=== PATIENT | female | born 1970 | race Caucasian/White ===

== ENCOUNTER 2017-06-12 09:37 | Emergency (ER) | payer OTHER ==
[2017-06-12] MEDS ORDERED: Sodium Chloride 0.9% 1000 ML 1,000 ML IV STA (10:08)
[2017-06-12] MEDS ORDERED: Zofran 4 MG/2 ML VIAL IV ONE (10:08)
[2017-06-12] MEDS ORDERED: VALIUM 10 MG/2 ML SYRINGE IV ONE (10:08)
--- NOTE | 2017-06-12 10:13 | ERPHSYRPT ---
- History of Present Illness Time Seen by Provider: 06/12/17 10:00 Source: patient Patient Subjective Stated Complaint: woke up this am at 0430 with dizziness, h/a , and nausea. states had similair episode several years ago after working a long stretch. Triage Nursing Assessment: to room per w/c, skin w/d, color normal, resp easy. assisted to cot due to dizziness. kerr without difficulty. eliseo. no vomiting at present time. Physician History: CC: dizziness Hx: 46 y/o patient has profound vertiginous dizziness today. Worse with movement of her head. Nausea and some dry heaves. Feels thirsty. Mild "sinus headache." No ear ringing or buzzing. No hearing loss. LMP 3 weeks ago. No chest or abd pain. No fever or chills. No injury. No chiropractic manipulation. Timing/Duration: today Severity: severe Allergies/Adverse Reactions: morphine Allergy (Severe, Verified 06/12/17 09:54) Sulfa (Sulfonamide Antibiotics) [Sulfa(Sulfonamide Antibiotics)] Allergy (Mild, Verified 06/12/17 09:54) Home Medications: Prozac 20 MG 20 mg PO DAILY 04/11/12 [History] Cetirizine HCl [Zyrtec] 10 mg PO DAILY 06/12/17 [History] Hx Tetanus, Diphtheria Vaccination/Date Given: Yes Hx Influenza Vaccination/Date Given: Yes (2011) Hx Pneumococcal Vaccination/Date Given: No - Review of Systems Constitutional: No Fever, No Chills Eyes: No Symptoms, No Vision Changes Ears, Nose, & Throat: No Hearing Changes, No Tinnitus Respiratory: No Cough, No Dyspnea Cardiac: No Chest Pain, No Palpitations, No Syncope Abdominal/Gastrointestinal: Nausea, No Abdominal Pain, No Vomiting, No Diarrhea Skin: No Rash Neurological: Dizziness, Headache (mild), No Focal Weakness, No Parasthesia All Other Systems: Reviewed and Negative - Past Medical History Pertinent Past Medical History: Yes Neurological History: No Pertinent History ENT History: No Pertinent History Cardiac History: No Pertinent History Respiratory History: No Pertinent History Endocrine Medical History: No Pertinent History Musculoskeletal History: No Pertinent History GI Medical History: No Pertinent History History: No Pertinent History Psycho-Social History: Depression Female Reproductive Disorders: No Pertinent History - Past Surgical History Past Surgical History: Yes Gastrointestinal: Cholecystectomy Female Surgical History: Section, Tubal Ligation - Social History Smoking Status: Never smoker Exposure to second hand smoke: No Drug Use: none Patient Lives Alone: No - Female History Hx Last Menstrual Period: 05/19/17 Hx Now: No (tubal) - Nursing Vital Signs Nursing Vital Signs: Initial Vital Signs Temperature 97.9 F 06/12/17 09:48 Pulse Rate 74 06/12/17 09:48 Respiratory Rate 16 06/12/17 09:48 Blood Pressure 115/65 06/12/17 09:48 O2 Sat by Pulse Oximetry 96 06/12/17 09:48 Pain Scale Pain Intensity 1 - [place] Coma Scale Best Eye Response (Olena): (4) open spontaneously Best Verbal Response (Olena): (5) oriented Best Motor Response (Olena): (6) obeys commands [place] Total: 15 - Physical Exam General Appearance: alert Eye Exam: bilateral eye: PERRL, EOMI Ears, Nose, Throat Exam: normal ENT inspection, moist mucous membranes Neck Exam: normal inspection, non-tender, supple, other (prefers to hold still due to dizziness) Respiratory: normal breath sounds Cardiovascular: regular rate/rhythm, No murmur Gastrointestinal: soft, No tenderness, No distention Extremity Exam: normal inspection, normal range of motion Mental Status: alert, oriented x 3, cooperative certified registered nurse practitioner Exam: normal hearing, normal speech, PERRL Coordination/Gait: normal finger to nose, normal cerebellar function (normal Heel to [place]) Motor/Sensory: no motor deficit, no sensory deficit, no pronator drift Skin Exam: normal color, warm, dry, No rash SpO2 Interpretation: normal SpO2: 96 Oxygen Delivery: Room Air - Course Nursing assessment & vital signs reviewed: Yes - CT Exams head CT Interpretation: Negative, Tele-radiologist Report Ordered Tests: Active Orders 24 hr Category Date Time Status IV Insertion STAT Care 06/12/17 10:08 Active HEAD WITHOUT CONTRAST [CT] Stat Exams 06/12/17 11:33 Ordered CBC W DIFF Stat Lab 06/12/17 10:08 Completed CMP Stat Lab 06/12/17 10:08 Completed HCG QUALITATIVE,SERUM Stat Lab 06/12/17 10:08 Completed Medication Summary Discontinued Medications Generic Name Dose Route Start Last Admin Trade Name Freq PRN Reason Stop Dose Admin Diazepam 5 mg 06/12/17 10:08 06/12/17 10:25 Valium 10 Mg/2 Ml Syringe IV 06/12/17 10:09 5 mg STAT ONE Administration Diazepam Confirm 06/12/17 10:21 Valium 10 Mg/2 Ml Syringe Administered 06/12/17 10:22 Dose 10 mg .ROUTE .STK-MED ONE Sodium Chloride 1,000 mls @ 999 mls/hr 06/12/17 10:08 06/12/17 10:25 Sodium Chloride 0.9% 1000 Ml IV 06/12/17 11:08 999 mls/hr .Q1H1M STA Administration Sodium Chloride Confirm 06/12/17 10:22 Sodium Chloride 0.9% 1000 Ml Administered 06/12/17 10:23 Dose 1,000 mls @ ud .ROUTE .STK-MED ONE Lactated Ringer's 1,000 mls @ 999 mls/hr 06/12/17 11:13 06/12/17 11:18 Lactated Ringers IV 06/12/17 12:13 999 mls/hr .Q1H1M ONE Administration Lactated Ringer's Confirm 06/12/17 11:14 Lactated Ringers Administered 06/12/17 11:15 Dose 1,000 mls @ ud IV .STK-MED ONE Meclizine HCl 25 mg 06/12/17 12:45 06/12/17 12:59 Antivert 25 Mg PO 06/12/17 12:46 25 mg STAT ONE Administration Meclizine HCl Confirm 06/12/17 12:54 Antivert 25 Mg Administered 06/12/17 12:55 Dose 25 mg .ROUTE .STK-MED ONE Ondansetron HCl 4 mg 06/12/17 10:08 06/12/17 10:25 Zofran 4 Mg/2 Ml Vial IV 06/12/17 10:09 4 mg STAT ONE Administration Ondansetron HCl Confirm 06/12/17 10:21 Zofran 4 Mg/2 Ml Vial Administered 06/12/17 10:22 Dose 4 mg .ROUTE .STK-MED ONE Lab/Rad Data: Laboratory Result Diagrams 06/12/17 10:08 06/12/17 10:08 Laboratory Results 06/12/17 06/12/17 06/12/17 Range/Units 10:08 10:08 10:08 WBC 7.7 (4.0-10.5) K/mm3 RBC 4.02 L (4.1-5.4) M/mm3 Hgb 11.7 L (12.0-16.0) gm/dl Hct 34.7 L (35-47) % MCV 86.3 (78-100) fl MCH 29.1 (26-32) pg MCHC 33.7 (32-36) g/dl RDW 13.7 (11.5-14.0) % Plt Count 233 (150-450) K/mm3 MPV 10.0 H (6-9.5) fl Gran % 67.7 H (36.0-66.0) % Lymphocytes % 23.6 L (24.0-44.0) % Monocytes % 6.8 (0.0-12.0) % Eosinophils % 1.6 (0.00-5.0) % Basophils % 0.3 (0.0-0.4) % Basophils # 0.02 (0-0.4) Sodium 137 (136-145) mEq/L Potassium 3.9 (3.5-5.1) mEq/L Chloride 104 (98-107) mEq/L Carbon Dioxide 24.2 (21-32) mEq/L Anion Gap 13.0 (5-15) MEQ/L BUN 12 (9-20) mg/dL Creatinine 0.65 (0.55-1.30) mg/dl Estimated GFR > 60 ML/MIN Glucose 101 (70-110) MG/DL Calcium 8.8 (8.5-10.1) mg/dL Total Bilirubin 0.30 (0.2-1.0) mg/dL AST 33 (15-37) U/L ALT 45 (12-78) U/L Alkaline Phosphatase 64 (46-116) U/L Serum Total Protein 6.9 (6.4-8.2) gm/dL Albumin 3.4 (3.4-5.0) g/dL Serum , Qual NEGATIVE (Negative) - Progress Progress Note: 06/12/17 11:36 Pt had some improvement in vertigo until she got up to the commode. She has return of profound dizziness. Will get CT. IVF given as BP was borderline. 06/12/17 12:44 Mookie Hallpike positive mildly on right side down. Christian maneuver performed once. No vertigo. Will rest and attempt ambulation. 06/12/17 13:17 Pt ambulated in hallway. No vertigo. Still feels some woozy. BP ok. She is drinking sprite. She was able to complete tandem walk. No cerebeller signs. Will release with antivert and instructions. Counseled pt/family regarding: lab results, diagnosis, need for follow-up, rad results - Departure Time of Disposition: 13:18 Departure Disposition: Home Clinical Impression: Vertigo Condition: Fair Critical Care Time: No Referrals: MARIA LUISA DELGADO [Primary Care Provider] - Instructions: Vertigo Additional Instructions: No driving today or while ill or taking antivert. Rx antivert. Sip fluids. Keep head upright today. Return for problems or concerns. Follow up with Dr Delgado next week. Prescriptions: Meclizine HCl 25 mg [Antivert 25 mg] 1 tab PO Q6H PRN PRN #24 tablet PRN Reason: dizziness
[2017-06-12 10:21] LABS: BASOPHIL % 0.3 % (0.0-0.4); Eosinophil % 1.6 % (0.00-5.0); Granulocytes % 67.7 % (36.0-66.0); Lymphocytes % 23.6 % (24.0-44.0); Mean Cell Volume 86.3 fl (78-100); Mean Corpuscular Hemoglobin 29.1 pg (26-32); Monocytes % 6.8 % (0.0-12.0); Platelet Count 233 K/mm3 (150-450); Red Blood Count 4.02 M/mm3 (4.1-5.4); Red Cell Distribution Width 13.7 % (11.5-14.0); White Blood Count 7.7 K/mm3 (4.0-10.5)
[2017-06-12] MEDS ORDERED: VALIUM 10 MG/2 ML SYRINGE ONE (10:21)
[2017-06-12] MEDS ORDERED: Zofran 4 MG/2 ML VIAL ONE (10:21)
[2017-06-12] MEDS ORDERED: Sodium Chloride 0.9% 1000 ML 1,000 ML ONE (10:22)
[2017-06-12 11:11] LABS: ALBUMIN 3.4 g/dL (3.4-5.0); ALKALINE PHOSPHATASE 64 U/L (46-116); BLOOD UREA NITROGEN 12 mg/dL (9-20); CHLORIDE 104 mEq/L (98-107); Carbon Dioxide 24.2 mEq/L (21-32); Glucose 101 MG/DL (70-110); Potassium 3.9 mEq/L (3.5-5.1); SGOT/AST 33 U/L (15-37); SGPT/ALT 45 U/L (12-78); SODIUM 137 mEq/L (136-145); Total Protein 6.9 gm/dL (6.4-8.2)
[2017-06-12] MEDS ORDERED: Lactated Ringers 1,000 ML IV ONE ×2 (11:13→11:14)
[2017-06-12] MEDS ORDERED: ANTIVERT 25 MG PO ONE (12:45)
[2017-06-12] MEDS ORDERED: ANTIVERT 25 MG ONE (12:54)
[2017-06-12 13:23] VITALS: BP 142/79; PULSE 83; O2SAT 95
--- NOTE | 2017-06-13 07:33 | XRAY ---
Indication: Severe vertigo. Multiple contiguous axial images obtained through the head without contrast. Comparison: April 11, 2012. Normal appearing brain parenchyma, ventricles, and bony calvarium. Visualized paranasal sinuses and mastoid air cells are clear. Impression: Normal CT head without contrast exam. Comment: Preliminary interpretation was made by [facility]. No discrepancy. CTDI 70.80
== END 2017-06-12 13:31 | disposition home or self-care (01) ==
LOC: ED 09:37
DX: R42 Dizziness and giddiness (principal); R11.0 Nausea; R51 Headache
CPT/HCPCS: 36000; 36415; 70450; 80053; 84703; 85025; 96360; 96374; 96375; 99284; J2405; J3360; A9270-GY

== ENCOUNTER 2020-11-25 05:58 | Day surgery (SDC) | payer BC ==
[2020-11-25] MEDS ORDERED: Lactated Ringers 1,000 ML IV SCH (07:00)
[2020-11-25] MEDS ORDERED: Xylocaine-Mpf 2% 5 Ml Vial ONE (07:30)
[2020-11-25] MEDS ORDERED: DIPRIVAN 200 MG/20 ML IV ONE (07:30)
[2020-11-25 08:48] VITALS: O2SAT 97
[2020-11-25 08:54] VITALS: BP 142/72; PULSE 70
--- NOTE | 2020-11-25 14:24 | OP ---
SURGERY DATE/TIME: 11/25/2020 0743 PREOPERATIVE DIAGNOSIS: Dysphagia. POSTOPERATIVE DIAGNOSES: 1) Gastroparesis. 2) Mild gastritis. PROCEDURE: Esophagogastroduodenoscopy with cold forceps biopsy of antrum. SURGEON: Dr. Pressley. ANESTHESIA: Medications were given by the anesthesia department. HISTORY: The patient is a 50 year old white female who presents with complaints of dysphagia particularly swallowing her pills. She reports that it feels like things get stuck in her throat. She has been having reflux. The patient has been taking both proton pump inhibitor and H2 edwige medications for the last two months without relief. The patient is felt the need to have endoscopic evaluation. She was appraised of the risks of the procedure including the risk of perforation, phlebitis, untoward reaction to medication, bleeding and missed lesions. The patient verbalized her understanding and desired to have the procedure performed. DESCRIPTION OF PROCEDURE: The patient was given the medications by the anesthesia department. She had continuous pulse oximetry, ECG monitoring, intermittent blood pressure monitoring and tidal CO2 monitoring during the examination. She was placed in the left lateral decubitus position. A bite block was placed. Flexible Olympus gastroscope was used to intubate the oropharynx. A view of the larynx was obtained and was normal. The scope was easily introduced in the esophagus which appeared to be normal throughout its length. There were no strictures noted specifically. The stomach was entered where normal gastric rugal folds were seen. There was also noted appearance of fair amount of residual gastric products. The scope was passed along the greater curvature of the stomach to the antrum. The pylorus was encountered and intubated. The duodenum was inspected and found to be normal. The scope is withdrawn towards the stomach. Again, a retroflex view was obtained of the lesser curvature, fundus and cardia regions of the stomach and there was no significant hiatal hernia noted. The scope was redirected towards the gastric antrum and biopsies were obtained to rule out the presence of Helicobacter pylori-type organisms. The scope was then removed from the patient who tolerated the procedure well and was sent back to outpatient recovery in good condition.
== END 2020-11-25 08:50 | disposition home or self-care (01) ==
LOC: SDC 05:58
PROVIDERS: ATTEND Family Medicine
DX: K31.84 Gastroparesis (principal); K29.70 Gastritis, unspecified, without bleeding
CPT/HCPCS: J2704

== ENCOUNTER 2023-04-29 11:53 | Emergency (ER) | payer BC ==
--- NOTE | 2023-04-29 11:56 | ERPHSYRPT ---
- History of Present Illness Time Seen by Provider: 04/29/23 11:56 Source: patient Exam Limitations: no limitations Physician History: This is a 52-year-old white female patient who has had chronic left knee problems. She has had a meniscus tear in the past and it was treated nonoperatively for 3 years. Recently, she is having more tenderness in this area. Patient was seen by her orthopedic surgeon yesterday in [facility]. An x-ray was performed. The orthopedic surgeon stated that he could not help her given the findings of [id number] on x-ray and she is referred to an orthopedic surgeon that does total knee replacements. Her appointment is not until next week. Her primary care provider, Dr. Sun, wrote a prescription for her and it was sent to the pharmacy. However, the pharmacy said that the prescription is on a "3-day hold". Patient is having significant pain and she came here simply to get the pain medicine to try to give her some relief of her discomfort. Method of Injury: other (No new injury, worsening left knee pain) Quality: constant, aching, throbbing Severity of Pain-Max: moderate Severity of Pain-Current: moderate Lower Extremities Pain: knee: left Modifying Factors: Improves With: movement Associated Symptoms: other (Can bear weight but hurts to do so) Allergies/Adverse Reactions: morphine Allergy (Severe, Verified 04/29/23 12:01) Swelling of Tongue and Lips "lips tingling" Sulfa (Sulfonamide Antibiotics) [Sulfa(Sulfonamide Antibiotics)] Allergy (Mild, Verified 04/29/23 12:01) Itching Home Medications: Cetirizine HCl [Zyrtec] 10 mg PO UD 11/20/20 [History] Famotidine [Pepcid AC] 10 mg PO DAILY 11/20/20 [History] Fluoxetine HCl [Prozac] 40 mg PO DAILY 11/20/20 [History] Fluticasone Propionate [Flonase NASAL] 16 gm NS DAILY 11/20/20 [History] Omeprazole 20 mg PO DAILY 11/20/20 [History] Cholecalciferol (Vitamin D3) [Vitamin D3] 1,000 unit PO DAILY 04/29/23 [History] Dextroamphetamine/Amphetamine [Adderall 5 mg Tablet] 5 mg PO DAILY 04/29/23 [History] Hx Tetanus, Diphtheria Vaccination/Date Given: Yes Hx Influenza Vaccination/Date Given: Yes (2011) Hx Pneumococcal Vaccination/Date Given: No Travel Risk - International Travel Have you traveled outside of the country in past 3 weeks: No - Coronavirus Screening Are you exhibiting any of the following symptoms?: No Close contact with a COVID-19 positive Pt in past 14-21 Days: No - Review of Systems Constitutional: No Symptoms Eyes: No Symptoms Ears, Nose, & Throat: No Symptoms Respiratory: No Symptoms Cardiac: No Symptoms Abdominal/Gastrointestinal: No Symptoms Genitourinary Symptoms: No Symptoms Musculoskeletal: Joint Pain (Left knee pain) Skin: No Symptoms Neurological: No Symptoms Psychological: No Symptoms Endocrine: No Symptoms Hematologic/Lymphatic: No Symptoms Immunological/Allergic: No Symptoms All Other Systems: Reviewed and Negative - Past Medical History Pertinent Past Medical History: Yes Neurological History: No Pertinent History ENT History: No Pertinent History Cardiac History: No Pertinent History Respiratory History: No Pertinent History, Pneumonia Endocrine Medical History: No Pertinent History Musculoskeletal History: No Pertinent History GI Medical History: No Pertinent History History: No Pertinent History Psycho-Social History: Depression Female Reproductive Disorders: No Pertinent History Other Medical History: august 2019 intersticial airway illness. hx anemia - Past Surgical History Past Surgical History: Yes Neuro Surgical History: No Pertinent History Cardiac: No Pertinent History Respiratory: No Pertinent History Gastrointestinal: Cholecystectomy Genitourinary: No Pertinent History Musculoskeletal: No Pertinent History Female Surgical History: Section, Tubal Ligation Other Surgical History: wisdom teeth removal, x three 1995,1998,2008. endometrial ablation 2017 - Social History Smoking Status: Never smoker Exposure to second hand smoke: No Drug Use: none Patient Lives Alone: No - Nursing Vital Signs Nursing Vital Signs: Pain Scale Pain Intensity 10 - Physical Exam General Appearance: mild distress, alert, anxiety Eyes, Ears, Nose, Throat Exam: normal ENT inspection, moist mucous membranes Neck Exam: normal inspection, non-tender, supple, full range of motion Cardiovascular/Respiratory Exam: chest non-tender, no respiratory distress Gastrointestinal/Abdominal Exam: non-tender Back Exam: normal inspection, normal range of motion, No CVA tenderness, No vertebral tenderness Hips Exam: bilateral: non-tender, normal inspection, normal range of motion, no evidence of injury Legs Exam: bilateral leg: non-tender, normal inspection, normal range of motion, no evidence of injury Knees Exam: right knee: non-tender, left knee: bone tenderness, soft tissue tenderness, bilateral knee: normal inspection, no evidence of injury Ankle Exam: bilateral ankle: non-tender, normal inspection, normal range of motion, no evidence of injury Foot Exam: bilateral foot: non-tender, normal inspection, normal range of motion, no evidence of injury Neuro/Tendon Exam: normal sensation, normal motor functions, normal tendon functions, responds to pain, no evidence tendon injury Mental Status Exam: alert, oriented x 3, cooperative Skin Exam: normal color, warm, dry SpO2 Interpretation: normal O2 Delivery: Room Air - Course Nursing assessment & vital signs reviewed: Yes - Progress Progress: improved, pain not gone completely Progress Note: 04/29/23 12:18 This patient states that she has had Barre and Percocet in the past without any adverse reactions. This patient is here to obtain pain medication to help relieve her left knee pain. She has a prescription and it is on the 3-day hold at the pharmacy. We will contact the patient's prescriber and have their office contact the insurance company and get the release of the 3-day hold. This was at the recommendation of the pharmacy. Just as I am dictating, the nurse informed me that the patient's office called the pharmacy and they were able to release the prescription. Patient is now stating she does not want any medication here in the emergency department. Her medical issue is 1 of low complexity. 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 Follow-up with your orthopedic surgeon appointment next week.
[2023-04-29] MEDS ORDERED: OXYCODONE-ACETAMINOPHEN 10-325 PO STA (12:13)
[2023-04-29] MEDS ORDERED: OXYCODONE-ACETAMINOPHEN 10-325 ONE (12:16)
== END 2023-04-29 12:48 | disposition home or self-care (01) ==
LOC: ED 11:53
DX: M25.562 Pain in left knee (principal); Z79.899 Other long term (current) drug therapy
CPT/HCPCS: 99281; A9270-GY

== ENCOUNTER 2025-10-25 15:21 | Emergency (ER) | payer BC ==
--- NOTE | 2025-10-25 15:31 | ERPHSYRPT ---
- History of Present Illness Time Seen by Provider: 10/25/25 15:31 Source: patient, family Exam Limitations: no limitations Physician History: This is a 54-year-old overweight white female patient arrives with private vehicle and is patient Dr. Sun sent over from urgent care because of abnormal labs that were obtained prior to arrival which I reviewed. I reviewed these outpatient labs and interpreted that the CO2 is mildly decreased and the anion gap is mildly increased. The patient states that she cannot hold liquids down. She is dry heaving and having significant episodes of diarrhea. She hasno significant abdominal pain. She has mild cramping when the diarrhea comes. It does not appear as though she had a formal urinalysis performed. No viral swabs were obtained. Patient denies chest pain and she denies shortness of breath. Patient has a history of gastroesophageal reflux disease, depression, seasonal allergies. Timing/Duration: day(s) (2) Severity: moderate Associated Symptoms: nausea, vomiting, loss of appetite, weakness, other (Diarrhea) Allergies/Adverse Reactions: morphine Allergy (Severe, Verified 10/25/25 15:43) Swelling of Tongue and Lips "lips tingling" Sulfa (Sulfonamide Antibiotics) [Sulfa(Sulfonamide Antibiotics)] Allergy (Mild, Verified 10/25/25 15:43) Itching Home Medications: Cetirizine HCl [Zyrtec] 10 mg PO UD 11/20/20 [History] Fluoxetine HCl [Prozac] 40 mg PO DAILY 11/20/20 [History] Fluticasone Propionate [Flonase NASAL] 16 gm NS DAILY 11/20/20 [History] Omeprazole 20 mg PO DAILY 11/20/20 [History] Cholecalciferol (Vitamin D3) [Vitamin D3] 1,000 unit PO DAILY 04/29/23 [History] Dextroamphetamine/Amphetamine [Adderall 5 mg Tablet] 5 mg PO DAILY 04/29/23 [History] Hx Tetanus, Diphtheria Vaccination/Date Given: Yes Hx Influenza Vaccination/Date Given: Yes (2011) Hx Pneumococcal Vaccination/Date Given: No Travel Risk - International Travel Have you traveled outside of the country in past 3 weeks: No - Emerging Infectious Disease Are you exhibiting symptoms associated with any current EIDs: No - Review of Systems Constitutional: Weakness (Mild generalized) Eyes: No Symptoms Ears, Nose, & Throat: No Symptoms Respiratory: No Symptoms Cardiac: No Symptoms Abdominal/Gastrointestinal: Nausea, Vomiting, Diarrhea, Appetite Changes Genitourinary Symptoms: No Symptoms Musculoskeletal: No Symptoms Skin: No Symptoms Neurological: No Symptoms Psychological: No Symptoms Endocrine: No Symptoms Hematologic/Lymphatic: No Symptoms Immunological/Allergic: No Symptoms - Past Medical History Pertinent Past Medical History: Yes Neurological History: No Pertinent History ENT History: No Pertinent History Cardiac History: No Pertinent History Respiratory History: No Pertinent History, Pneumonia Endocrine Medical History: No Pertinent History Musculoskeletal History: No Pertinent History GI Medical History: No Pertinent History History: No Pertinent History Psycho-Social History: Depression Female Reproductive Disorders: No Pertinent History Other Medical History: august 2019 intersticial airway illness. hx anemia - Past Surgical History Past Surgical History: Yes Neuro Surgical History: No Pertinent History Cardiac: No Pertinent History Respiratory: No Pertinent History Gastrointestinal: Cholecystectomy Genitourinary: No Pertinent History Musculoskeletal: No Pertinent History Female Surgical History: Section, Tubal Ligation Other Surgical History: wisdom teeth removal, x three 1995,1998,2008. endometrial ablation 2017 - Female History Hx Last Menstrual Period: 15 days ago - Social History Smoking Status: Never smoker Exposure to second hand smoke: No Drug Use: none Patient Lives Alone: No - Nursing Vital Signs Nursing Vital Signs: Initial Vital Signs Temperature 97 F 10/25/25 15:22 Pulse Rate 75 10/25/25 15:22 Respiratory Rate 16 10/25/25 15:22 Blood Pressure 132/78 10/25/25 15:22 O2 Sat by Pulse Oximetry 98 10/25/25 15:22 Pain Scale Pain Intensity 3 - Physical Exam General Appearance: no apparent distress, alert, anxiety, obese Eye Exam: PERRL/EOMI, eyes nml inspection Ears, Nose, Throat Exam: normal ENT inspection, moist mucous membranes Neck Exam: normal inspection, non-tender, supple, full range of motion Respiratory Exam: normal breath sounds, lungs clear, airway intact, No chest tenderness, No respiratory distress Cardiovascular Exam: regular rate/rhythm, normal heart sounds, normal peripheral pulses Gastrointestinal/Abdomen Exam: soft, normal bowel sounds, No tenderness Pelvic Exam: not done Rectal Exam: not done Back Exam: normal inspection, normal range of motion, No CVA tenderness, No vertebral tenderness Extremity Exam: normal inspection, normal range of motion, pelvis stable Neurologic Exam: alert, oriented x 3, cooperative, spinning mule tender II-XII nml as tested, nml cerebellar function, nml station & gait, sensation nml Skin Exam: normal color, warm, dry Lymphatic Exam: No adenopathy SpO2 Interpretation: normal O2 Delivery: Room Air - Course Nursing assessment & vital signs reviewed: Yes EKG Interpreted by Me: RATE (71), Sinus Rhythm, NORMAL AXIS, NORMAL INTERVALS, NORMAL QRS, Other (QTc is 418. No acute ischemic changes) Ordered Tests: Active Orders 24 hr Category Date Time Status EKG-ER Only STAT Care 10/25/25 16:04 Completed IV Insertion STAT Care 10/25/25 16:04 Active AMYLASE Stat Lab 10/25/25 16:10 Completed CULTURE,URINE Stat Lab 10/25/25 16:04 Received LIPASE Stat Lab 10/25/25 16:10 Completed Lactic Acid Stat Lab 10/25/25 16:20 Completed MONO SCREEN Stat Lab 10/25/25 16:10 Completed UA W/RFX UR CULTURE Stat Lab 10/25/25 16:04 Completed Medication Summary Generic Name Dose Route Start Last Admin Trade Name Freq PRN Reason Stop Dose Admin Sodium Chloride 1,000 mls @ 999 mls/hr 10/25/25 17:07 10/25/25 17:15 Sodium Chloride 0.9% 1000 Ml IV 10/25/25 18:07 999 mls/hr .Q1H1M STA Administration Ceftriaxone Sodium 1 gm in 100 mls @ 200 mls/hr 10/25/25 18:01 Rocephin 1 Gm / 100 Ml Nacl IV 10/25/25 18:30 STAT ONE Discontinued Medications Generic Name Dose Route Start Last Admin Trade Name Freq PRN Reason Stop Dose Admin Sodium Chloride 1,000 mls @ 999 mls/hr 10/25/25 16:04 10/25/25 17:43 Sodium Chloride 0.9% 1000 Ml IV 10/25/25 17:04 Infused .Q1H1M STA Infusion Sodium Chloride Confirm 10/25/25 16:30 Sodium Chloride 0.9% 1000 Ml Administered 10/25/25 16:31 Dose 1,000 mls @ ud .ROUTE .STK-MED ONE Sodium Chloride Confirm 10/25/25 17:14 Sodium Chloride 0.9% 1000 Ml Administered 10/25/25 17:15 Dose 1,000 mls @ ud .ROUTE .STK-MED ONE Metronidazole 500 mg 10/25/25 18:01 Metronidazole 500 Mg Tablet PO 10/25/25 18:02 STAT ONE Ondansetron HCl 4 mg 10/25/25 16:04 10/25/25 16:31 Ondansetron Hcl 4 Mg/2 Ml Vial IV 10/25/25 16:05 4 mg STAT ONE Administration Ondansetron HCl Confirm 10/25/25 16:30 Ondansetron Hcl 4 Mg/2 Ml Vial Administered 10/25/25 16:31 Dose 4 mg .ROUTE .STK-MED ONE Pantoprazole Sodium 40 mg 10/25/25 16:04 10/25/25 16:31 Pantoprazole 40 Mg Vial IV 10/25/25 16:05 40 mg STAT ONE Administration Pantoprazole Sodium Confirm 10/25/25 16:30 Pantoprazole 40 Mg Vial Administered 10/25/25 16:31 Dose 40 mg IV .STK-MED ONE Lab/Rad Data: Laboratory Results 10/25/25 10/25/25 10/25/25 Range/Units 16:20 16:14 16:10 Lactic Acid 0.6 (0.4-2.0) Amylase (30-110) U/L Lipase (23-300) U/L Urine Color (Yellow) Urine Appearance (Clear) Urine pH (4.6-8.0) Ur Specific Moore (1.005-1.030) Urine Protein (Negative) Urine Glucose (UA) (Negative) mg/dL Urine Ketones (Negative) Urine Blood (Negative) Urine Nitrite (Negative) Urine Bilirubin (Negative) Urine Urobilinogen (0.2) mg/dL Ur Leukocyte Esterase (Negative) U Hyaline Cast (Auto) (0-2) /LPF Urine Microscopic RBC (0-5) /HPF Urine Microscopic WBC (0-5) /HPF Ur Epithelial Cells (None Seen) /HPF Urine Bacteria (None Seen) /HPF Urine Culture Reflexed (NO) Monoscreen NEGATIVE (NEGATIVE) Influenza Type A Ag NEGATIVE (NEGATIVE) Influenza Type B Ag NEGATIVE (NEGATIVE) RSV (PCR) NEGATIVE (NEGATIVE) SARS-CoV-2 (PCR) NEGATIVE (NEGATIVE) 10/25/25 10/25/25 Range/Units 16:10 16:04 Lactic Acid (0.4-2.0) Amylase 68 (30-110) U/L Lipase 77 (23-300) U/L Urine Color Yellow (Yellow) Urine Appearance Cloudy A (Clear) Urine pH 5.5 (4.6-8.0) Ur Specific Moore 1.025 (1.005-1.030) Urine Protein Negative (Negative) Urine Glucose (UA) Negative (Negative) mg/dL Urine Ketones Trace A (Negative) Urine Blood NHT (Negative) Urine Nitrite Negative (Negative) Urine Bilirubin Negative (Negative) Urine Urobilinogen 1.0 A (0.2) mg/dL Ur Leukocyte Esterase Trace A (Negative) U Hyaline Cast (Auto) NONE SEEN (0-2) /LPF Urine Microscopic RBC 11-20 A (0-5) /HPF Urine Microscopic WBC 11-20 A (0-5) /HPF Ur Epithelial Cells Few (None Seen) /HPF Urine Bacteria Moderate A (None Seen) /HPF Urine Culture Reflexed YES (NO) Monoscreen (NEGATIVE) Influenza Type A Ag (NEGATIVE) Influenza Type B Ag (NEGATIVE) RSV (PCR) (NEGATIVE) SARS-CoV-2 (PCR) (NEGATIVE) - Progress Progress: improved, re-examined Progress Note: 10/25/25 16:13 My medical decision making and the assignment of moderate complexity of this patient's medical issue today is based on review of the patient's past medical history, reviewed the patient's medication list, reviewed patient drug allergy list, history of present illness, physical findings on examination. The workup in this patient includes reviewing the outpatient labs that were done in approximately 1045 this morning. IV line placement, infusion of lactated Ringer's 1 L. Infusion of more crystalloid will be dictated on patient's res ponse as well as laboratory data results. Obtain viral swabs, monotest, urinalysis, amylase and lipase levels. Differential diagnosis includes but is not limited to viral illness, dehydration, urinary tract infection, diarrhea 10/25/25 18:04 I interpreted the patient's laboratory data results from outside clinic as well as additional labs I ordered in the emergency department. Patient is mildly dehydrated and has a urinary tract infection. Her viral swabs are negative Patient clinically has colitis. In addition to Rocephin intravenously I will provide her with Flagyl orally. I will then prescribe her Flagyl, cefdinir and Zofran as an outpatient. Counseled pt/family regarding: lab results, diagnosis, need for follow-up Medical Desision Making - Diagnostic Testing Diagnostic test were ordered, analyzed, and reviewed by me: Yes - Risk of complications Low Risk: Low risk of morbidity from additional dx testing or treatment The pt has a mod risk of morbidity or mortality based on: Need for prescription drug management - Departure Departure Disposition: Home Clinical Impression: Mild dehydration, UTI (urinary tract infection), Colitis Condition: Stable Critical Care Time: No Referrals: ADELINE SUN MD [Primary Care Provider, [facility]] - Follow up/PCP as directed Additional Instructions: Drink plenty of fluids before advancing your diet. Avoid fatty greasy spicy foods. Take your antibiotics as prescribed. Call your primary care provider tomorrow, 10/26/2025, to make arrangements for follow-up appointment for further evaluation and management. Prescriptions: Ondansetron ODT 4 MG [Zofran Odt 4 mg] 4 mg PO Q6H PRN PRN #10 tablet PRN Reason: Vomiting Cefdinir 300 mg PO BID #14 cap Metronidazole 500 mg [Flagyl 500 MG] 500 mg PO TID #21 tablet
[2025-10-25 15:52] VITALS: TEMP 97
[2025-10-25] MEDS ORDERED: Zofran 4 MG/2 ML VIAL ONE (16:30)
[2025-10-25] MEDS ORDERED: PROTONIX 40 MG IV IV ONE (16:30)
[2025-10-25] MEDS: Zofran 4 MG/2 ML VIAL IV ONE (16:31)
[2025-10-25] MEDS: PROTONIX 40 MG IV IV ONE (16:31)
[2025-10-25 17:11] LABS: Glucose, Urine Negative (Negative); Protein,Urine Dip Negative (Negative)
[2025-10-25 17:14] LABS: INFLUENZA A NEGATIVE (NEGATIVE); INFLUENZA B NEGATIVE (NEGATIVE); RESPIRATORY SYNCTIAL VIRUS NEGATIVE (NEGATIVE); SARS-CoV-2 Xpert Express NEGATIVE (NEGATIVE)
[2025-10-25] MEDS ORDERED: Flagyl 500 MG ONE (18:05)
[2025-10-25] MEDS ORDERED: ROCEPHIN 1 GM / 100 ML NaCl 1 GM/100 ML IVPB IV ONE (18:05)
[2025-10-25] MEDS: ROCEPHIN 1 GM / 100 ML NaCl 1 GM/100 ML IVPB IV ONE (18:06)
[2025-10-25] MEDS: Flagyl 500 MG PO ONE (18:07)
[2025-10-25 19:06] VITALS: BP 122/76; PULSE 77; RESP 17; O2SAT 99
== END 2025-10-25 19:15 | disposition home or self-care (01) ==
LOC: ED 15:21
DX: N39.0 Urinary tract infection, site not specified (principal); E86.0 Dehydration; K52.9 Noninfective gastroenteritis and colitis, unspecified; R11.2 Nausea with vomiting, unspecified; Z79.899 Other long term (current) drug therapy